=== PATIENT | male | born 1975 | race Caucasian/White ===

== ENCOUNTER 2018-05-11 16:23 | Inpatient (IN) ==
[2018-05-11] MEDS ORDERED: Morphine Sulfate Inj 2 MG/ML Vial IV.PUSH ONE (16:31)
[2018-05-11] MEDS ORDERED: Dextrose 50% in Water 50 ML Vial IV.PUSH PRN (16:31)
--- NOTE | 2018-05-11 16:36 | ED ---
HPI General Chief complaint: Chest Pain Stated complaint: Medical Time Seen by Provider: 05/11/18 16:31 Source: patient and EMS Mode of arrival: EMS Limitations: no limitations History of Present Illness HPI narrative: 43-year-old male with history of hypertension, diabetes, brought in by ambulance emergently for evaluation of chest pain, shortness of breath, hypotension. Patient started a new weekly injectable GLP-1 agonist yesterday evening and had several episodes of vomiting thereafter. He called the prescribing physician who reported that this is a known side effect of the medication. This afternoon the patient was awoken suddenly from sleep with substernal chest pain that radiates to his back. He describes the pain as sharp , constant, severe. He was given 325 mg of aspirin by EMS and sublingual nitroglycerin with subsequent episode of hypotension. He arrived on nonrebreather mask complaining of severe chest pain. He does see spray gun striper Dr. Aj because of his history of hypertension and diabetes, however he has no known cardiac disease. No fevers or recent illness. No abdominal pain. No paresthesias or motor deficits. No history of DVT or PE. No recent travel or immobilization. BGL on arrival is 295. His arrived shortly after, and reports that they both started the Keto diet one week ago. Related Data Home Medications Medication Instructions Recorded Confirmed empagliflozin [Jardiance] 10 mg PO DAILY 05/11/18 05/11/18 enalapril maleate 20 mg PO DAILY 05/11/18 05/11/18 metformin 1,000 mg PO BID 05/11/18 05/11/18 semaglutide [Ozempic] 0.25 mg SUBCUT QWEEK 05/11/18 05/11/18 sitagliptin [Januvia] 100 mg PO DAILY 05/11/18 05/11/18 Allergies Allergy/AdvReac Type Severity Reaction Status Date / Time No Known Allergies Allergy Verified 05/11/18 16:56 Review of Systems ROS: all other systems reviewed are negative PMFSH Medical History Medical History Diabetes (Acute) Hypertension (Acute) Social History Social History Substance History: No History of Abuse Second Hand Smoke Exposure: No Smoking Status: Never smoker How Often Do You Have a Drink Containing Alcohol: Never Recent Travel [facility] within the Last 8 Weeks: No Recent Out of Country Travel within the Last 8 Weeks: No Exam Narrative Exam Narrative: GENERAL: Well-developed, well-nourished, slightly tachypneic with a respiratory rate of 25 SKIN: Focused skin assessment warm/dry. HEAD: Atraumatic. Normocephalic. EYES: Pupils equal and round. No scleral icterus. No injection or drainage. ENT: Mucous membranes pink and dry. Ketotic odor on breath. NECK: Trachea midline. No JVD. CARDIOVASCULAR: Tachycardic, rate 115, regular. Distal pulses brisk and equal bilaterally. RESPIRATORY: No accessory muscle use. Clear to auscultation. Breath sounds equal bilaterally. GASTROINTESTINAL: Abdomen soft, non-tender, nondistended. MUSCULOSKELETAL: No obvious deformities. No clubbing. No cyanosis. No edema. NEUROLOGICAL: Awake and alert. No obvious cranial nerve deficits. Motor grossly within normal limits. Normal speech. PSYCHIATRIC: Appropriate mood and affect; insight and judgment normal. Course Initial Documented Vital Signs Pulse Rate 117 H 05/11/18 16:26 Respiratory Rate 25 H 05/11/18 16:26 Blood Pressure 117/82 05/11/18 16:26 Pulse Oximetry 100 05/11/18 16:26 Last Documented Vital Signs Pulse Rate 112 H 05/11/18 17:43 Respiratory Rate 22 05/11/18 17:43 Blood Pressure 135/68 05/11/18 17:43 Pulse Oximetry 100 05/11/18 17:43 Critical Care Time Critical Care Time: Yes Total Critical Care Time: 45 Attestation: Aggregate critical care time was 45 minutes. Time to perform other separately billable procedures was not included in the critical care time. My time did not include minutes spent treating any other patients simultaneously or on activities that did not directly contribute to the patient's treatment. The services I provided to this patient were to treat and/or prevent clinically significant deterioration that could result in: , permanent disability, diabetic coma I provided critical care services requiring my management, as noted below: Chart data review, documentation time, medication orders and management, vital sign assessments/reviewing monitor data, ordering and reviewing lab tests, ordering and interpreting/reviewing x-rays and diagnostic studies, care of the patient and discussion of the patient with the admitting physicians. Medical Decision Making MDM Narrative Medical decision making narrative: Venous blood gas was done soon after the patient arrived to the emergency department and shows a pH of 7.04 with bicarb of 5.7. Patient was written for 3 L of normal saline IV for suspected DKA. Awaiting chemistry to start DKA protocol. Vital signs and labs reviewed. Chest x-ray shows no acute disease. Cardiac enzymes are negative. The patient is in DKA. His beta hydroxybutyrate is 11.11 with an anion gap of 25 and a bicarb of 5. DKA protocol was initiated, and the patient will be admitted to the ICU for further treatment and evaluation. The patient and the patient significant other were made aware of all findings and plan for admission. Case discussed with [facility] hospitalist who prefers that the patient be admitted under the clinical laboratory service teacher service. Case discussed with clinical laboratory service teacher Dr. Whiting who will admit the patient to the clinical laboratory service teacher service. Medical Screen Exam Complete: Yes Emergency Medical Condition: Yes Differential Diagnosis Differential Diagnosis: DKA, metabolic abnormality, ACS, pneumothorax, pericarditis, PE, pneumonia, dissection, Boerhaave syndrome Lab Data Result diagrams: 05/11/18 16:30 05/11/18 16:30 Lab Results 05/11/18 05/11/18 05/11/18 Range/Units 16:30 16:30 16:30 WBC 16.9 H (4.0-11.0) th/mm3 RBC 5.32 (4.50-5.90) mil/mm3 Hgb 15.8 (13.0-17.0) gm/dL Hct 49.2 (39.0-51.0) % MCV 92.5 (80.0-100.0) fL MCH 29.7 (27.0-34.0) pg MCHC 32.1 (32.0-36.0) % RDW 12.9 (11.6-17.2) % Plt Count 333 (150-450) th/mm3 MPV 9.4 (7.0-11.0) fL Neut % (Auto) 82.9 H (16.0-70.0) % Lymph % (Auto) 11.1 (9.0-44.0) % Schleicher % (Auto) 5.3 (0.0-8.0) % Eos % (Auto) 0.0 (0.0-4.0) % Baso % (Auto) 0.7 (0.0-2.0) % Neut # (Auto) 14.0 H (1.8-7.7) th/mm3 Lymph # (Auto) 1.9 (1.0-4.8) th/mm3 Schleicher # (Auto) 0.9 (0.0-0.9) th/mm3 Eos # (Auto) 0.0 (0.0-0.4) th/mm3 Baso # (Auto) 0.1 (0.0-0.2) th/mm3 WBC Differential . Differential Comment Auto diff final Puncture Site Peripheral line Patient Temperature 98.6 VBG pH 7.04 L* (7.360-7.400) VBG pCO2 22 L (44-48) mmHG VBG pO2 41 H (35-40) mmHG VBG HCO3 6 L* (22-26) mmol/L VBG O2 Saturation 62 L (70-76) % VBG O2 Content 14.2 (9.0-17.0) Vol % VBG Base Excess -22.9 L (-2-2) mmol/L VBG Carboxyhemoglobin 1.2 (0-4) % VBG Methemoglobin 1.4 (0-2) % Hemoglobin 16.5 H (12.0-16.0) G/DL Inspired O2 21 % Critical Value Yes Sodium 129 L (136-145) meq/L Potassium 4.7 (3.5-5.1) meq/L Chloride 98 (98-107) meq/L Carbon Dioxide 5.6 L (21.0-32.0) meq/L Anion Gap 25 H (5-15) meq/L BUN 30 H (7-18) mg/dL Creatinine 2.02 H (0.60-1.30) mg/dL Estimated GFR 36 L (>89) mL/min POC Glucose (68-110) mg/dl Random Glucose 283 H (74-106) mg/dL Calcium 8.0 L (8.5-10.1) mg/dL Total Bilirubin 0.9 (0.2-1.0) mg/dL AST 10 L (15-37) U/L ALT 25 (12-78) U/L Alkaline Phosphatase 94 (45-117) U/L Total Creatine Kinase 45 (39-308) U/L Troponin I Less than 0.02 L (0.02-0.05) ng/mL Total Protein 8.3 H (6.4-8.2) g/dL Albumin 4.5 (3.4-5.0) g/dL Lipase 166 (73-393) U/L Beta-Hydroxybutyric Acd 11.11 H (0.00-0.39) mmol/L 05/11/18 05/11/18 Range/Units 16:31 17:45 WBC (4.0-11.0) th/mm3 RBC (4.50-5.90) mil/mm3 Hgb (13.0-17.0) gm/dL Hct (39.0-51.0) % MCV (80.0-100.0) fL MCH (27.0-34.0) pg MCHC (32.0-36.0) % RDW (11.6-17.2) % Plt Count (150-450) th/mm3 MPV (7.0-11.0) fL Neut % (Auto) (16.0-70.0) % Lymph % (Auto) (9.0-44.0) % Schleicher % (Auto) (0.0-8.0) % Eos % (Auto) (0.0-4.0) % Baso % (Auto) (0.0-2.0) % Neut # (Auto) (1.8-7.7) th/mm3 Lymph # (Auto) (1.0-4.8) th/mm3 Schleicher # (Auto) (0.0-0.9) th/mm3 Eos # (Auto) (0.0-0.4) th/mm3 Baso # (Auto) (0.0-0.2) th/mm3 WBC Differential Differential Comment Puncture Site Patient Temperature VBG pH (7.360-7.400) VBG pCO2 (44-48) mmHG VBG pO2 (35-40) mmHG VBG HCO3 (22-26) mmol/L VBG O2 Saturation (70-76) % VBG O2 Content (9.0-17.0) Vol % VBG Base Excess (-2-2) mmol/L VBG Carboxyhemoglobin (0-4) % VBG Methemoglobin (0-2) % Hemoglobin (12.0-16.0) G/DL Inspired O2 % Critical Value Sodium (136-145) meq/L Potassium (3.5-5.1) meq/L Chloride (98-107) meq/L Carbon Dioxide (21.0-32.0) meq/L Anion Gap (5-15) meq/L BUN (7-18) mg/dL Creatinine (0.60-1.30) mg/dL Estimated GFR (>89) mL/min POC Glucose 294 H 237 H (68-110) mg/dl Random Glucose (74-106) mg/dL Calcium (8.5-10.1) mg/dL Total Bilirubin (0.2-1.0) mg/dL AST (15-37) U/L ALT (12-78) U/L Alkaline Phosphatase (45-117) U/L Total Creatine Kinase (39-308) U/L Troponin I (0.02-0.05) ng/mL Total Protein (6.4-8.2) g/dL Albumin (3.4-5.0) g/dL Lipase (73-393) U/L Beta-Hydroxybutyric Acd (0.00-0.39) mmol/L Imaging Data Radiologist's impression: Chest X-Ray 05/11/18 00:00 CONCLUSION: Negative examination. ECG Data Attestation: I personally reviewed and interpreted this ECG as follows: (Sinus tachycardia, rate 117, leftward axis, normal intervals, no acute ischemic abnormality.) Discharge Plan Discharge Disposition Patient Disposition: 30 Still Patient Discharge Condition Condition: Fair Discharge Details Diagnosis: DKA (diabetic ketoacidoses) Physicians Team ED Provider: David Billingsley Primary Care Provider: UNKNOWN, Rxs /Orders / Referrals /Forms Prescriptions: No Action enalapril maleate 20 mg Tablet 20 mg PO DAILY RF: 0 metformin 1,000 mg Tablet 1,000 mg PO BID RF: 0 sitagliptin [Januvia] 100 mg Tablet 100 mg PO DAILY RF: 0 empagliflozin [Jardiance] 10 mg Tablet 10 mg PO DAILY RF: 0 semaglutide [Ozempic] 0.25 mg or 0.5 mg(2 mg/1.5 mL) Pen Injector 0.25 mg SUBCUT QWEEK RF: 0 Discharge Instructions Patient Printed Instructions: Chest Pain (ED) Status ED Status: With Doctor
[2018-05-11] MEDS ORDERED: Sod Chloride 0.9% Inj 1,000 ML IV.SIG SCH ×2 (16:45)
[2018-05-11 16:50] LABS: VBG Base Excess -22.9 mmol/L (-2-2); VBG Blood Gas Oxygen Content 14.2 Vol % (9.0-17.0); VBG PCO2 22 mmHG (44-48); VBG PH 7.04 (7.360-7.400); VBG PO2 41 mmHG (35-40)
[2018-05-11] MEDS: Sod Chloride 0.9% Inj 1,000 ML IV.SIG SCH ×2 (16:51→17:34)
--- NOTE | 2018-05-11 16:55 | XR ---
EXAM DATE: 05/11/2018 4:52 PM EST AGE/SEX: 43 years / Male INDICATIONS: Chest pain. CLINICAL DATA: This is the patient's initial encounter. Patient reports that signs and symptoms have been present for 1 day and indicates a pain score of 5/10. MEDICAL/SURGICAL HISTORY: None. None. COMPARISON: No prior exams available for comparison. FINDINGS: A single AP view of the chest demonstrates the lungs to be symmetrically aerated without evidence of mass, infiltrate or effusion. The cardiomediastinal contours are unremarkable. Osseous structures a re intact. CONCLUSION: Negative examination. Electronically signed by: Tez Mendenhall MD 05/11/2018 4:53 PM EST
[2018-05-11 17:16] LABS: Baso # (Auto) 0.1 th/mm3 (0.0-0.2); Baso % (Auto) 0.7 % (0.0-2.0); Hematocrit 49.2 % (39.0-51.0); Hemoglobin 15.8 gm/dL (13.0-17.0); Lymph # (Auto) 1.9 th/mm3 (1.0-4.8); Lymph % (Auto) 11.1 % (9.0-44.0); Mean Corpuscular HGB Conc 32.1 % (32.0-36.0); Mean Corpuscular Hemoglobin 29.7 pg (27.0-34.0); Mean Corpuscular Volume 92.5 fL (80.0-100.0); Mean Platelet Volume 9.4 fL (7.0-11.0); Mono # (Auto) 0.9 th/mm3 (0.0-0.9); Mono % (Auto) 5.3 % (0.0-8.0); Neut % (Auto) 82.9 % (16.0-70.0); Platelet Count 333 th/mm3 (150-450); Red Blood Count 5.32 mil/mm3 (4.50-5.90); Red Cell Distribution Width 12.9 % (11.6-17.2); White Blood Count 16.9 th/mm3 (4.0-11.0)
[2018-05-11 17:43] LABS: Alanine Aminotransferase 25 U/L (12-78); Albumin 4.5 g/dL (3.4-5.0); Anion Gap 25 meq/L (5-15); Aspartate Aminotransferase 10 U/L (15-37); Blood Urea Nitrogen 30 mg/dL (7-18); Carbon Dioxide 5.6 meq/L (21.0-32.0); Chloride 98 meq/L (98-107); Glomerular Filtration Rate 36 mL/min (>89); Glucose,Random 283 mg/dL (74-106); Lipase 166 U/L (73-393); Potassium 4.7 meq/L (3.5-5.1); Sodium 129 meq/L (136-145)
[2018-05-11 17:54] LABS: Alkaline Phosphatase 94 U/L (45-117); Beta Hydroxybutyric Acid 11.11 mmol/L (0.00-0.39); Total Protein 8.3 g/dL (6.4-8.2)
[2018-05-11] MEDS ORDERED: Potassium Chlor 20 mEq Premix 20 MEQ/100 ML PIGGYBACK IV.SIG PRN ×4 (17:59)
[2018-05-11] MEDS ORDERED: Potassium Chlor 40 mEq Premix 40 MEQ/100 ML PIGGYBACK IV.SIG PRN ×2 (17:59)
[2018-05-11] MEDS ORDERED: Sodium Phosphate Inj 15 MMOL in Sodium Chlor 0.9% Inj 100 ML IV.SIG PRN (17:59)
[2018-05-11 18:00] LABS: Creatine Kinase 45 U/L (39-308)
[2018-05-11 18:34] LABS: Bilirubin,Urine Negative (Negative); Clarity,Urine Clear (Clear); Color,Urine Straw (Yellw/Straw); Glucose,Urine (UA) 500 or Greater mg/dL (Negative); Hyaline Casts,Urine 10 /lpf (0-3); Leukocyte Esterase,Urine Negative (Negative); Mucus,Urine Few /lpf (Occasional); Nitrite,Urine Negative (Negative); Specific Gravity,Urine 1.014 (1.002-1.035); Squamous Epithelial Cell,Urine <1 /hpf (0-5)
[2018-05-11] MEDS: Dextrose 5%/NaCl 0.9% Inj 1,000 ML IV.CONT SCH ×2 (18:42→23:32)
[2018-05-11] MEDS: Insulin Regular (For Infusion) 100 UNIT in Sodium Chlor 0.9% Inj 99 ML IV.CONT PRN (18:43)
[2018-05-11] MEDS: Sod Chloride 0.9% Inj 1,000 ML IV.CONT SCH (18:46)
[2018-05-11] MEDS ORDERED: Acetaminophen 325 MG Tablet PO PRN (19:12)
[2018-05-11] MEDS ORDERED: Bisacodyl 10 MG Supp RECTAL PRN (19:12)
--- NOTE | 2018-05-11 19:25 | P.HPCC ---
History of Present Illness Service: Critical care medicine Primary Care Physician: UNKNOWN Chief Complaint: Abdominal pain/nausea vomiting History of Present Illness: This is a 43-year-old male. Admission 05/11/2018. Past medical includes diabetes mellitus times 3 years and hypertension. Patient presents to [facility] with acute onset of abdominal pains consistent nausea vomiting/ epigastric, chest pain shortness of breath. Patient was recently started on semagliptide 0.25 mg sq weekly this past and ultimately started having several episodes of nausea/vomiting.He notified his instructor of spanish/the prescribing physician who reported that this is a known side effect of the medication. This afternoon the patient was awoken suddenly from sleep with substernal chest pain that radiates to his back. He describes the pain as sharp , constant, severe. He was given 325 mg of aspirin by EMS and sublingual nitroglycerin with subsequent episode of hypotension. He arrived on nonrebreather mask complaining of severe chest pain. He does see big data software engineer Dr. Aj because of his history of hypertension and diabetes, however he has no known cardiac disease. Blood sugar was elevated to 95. No definite data S2 11.1. Blood gas repeated for some 0.04. Patient received a bolus of crystalloid and started on insulin drip at 4 units after receiving an 9 L bolus for insulin. Patient's nausea/ vomiting is improved after receiving ondansetron. Patient also to be acute kidney with a creatinine of 2.0. - Diagnosis (1) Leukocytosis (2) Hyponatremia (3) Acute kidney injury (4) Essential hypertension (5) DKA (diabetic ketoacidoses) (6) Ganglion cyst of dorsum of left wrist Inpatient Certification: I certify that the inpatient services were ordered in accordance with Medicare regulations governing the order. This includes certification that hospital inpatient services are reasonable and necessary and in the case of services not specified as inpatient-only under 42 CFR 419.22(n), that they are appropriately provided as inpatient services in accordance to with the 2-midnight benchmark under 43 CFR 412.3(e) Estimated Total Length of Stay (Days): 3 Plans for Post Hospital Care: Home Review of Systems Constitutional: Reports body ache(s), Denies anorexia, Denies chills, Denies daytime sleepiness Eyes: Denies blind spots, Denies blurry vision Ears, Nose, Mouth, and Throat: Denies abnormal hearing, Denies bleeding gums Cardiovascular: Reports chest pain, Denies chest pain at rest, Denies chest pain with activity, Denies shortness of breath with activity Respiratory: Denies change in phlegm color, Denies chest congestion Gastrointestinal: Reports abdominal pain, Reports nausea, Reports vomiting, Denies vomiting blood Genitourinary: Denies scrotal swelling Musculoskeletal: Denies abnormal walking, Denies joint swelling Skin/Breast: Denies bleeding lesions, Denies dry skin Neurologic: Denies abnormal hearing, Denies abnormal movements, Denies behavioral changes Psychiatric: Denies abnormal sleep pattern, Denies anxiety, Denies confusion Endocrine: Denies cold intolerance, Denies excessive sweating Hematologic/Lymphatic: Denies easy bleeding Allergic/Immunologic: Denies GI upset with certain foods PMFSH - History History Provided By: Preparation Plant Repairer / EMT - Medical History Medical History: Medical History (Last Updated 05/11/18 @ 19:18 by Balta Whiting MD) Diabetes Hypertension - Surgical History Surgical History: Surgical History (Last Updated 05/11/18 @ 19:19 by Balta Whiting MD) Ganglion cyst of dorsum of left wrist (Chronic) H/O removal of cyst S/P right rotator cuff repair - Family History Family History: Family History (Last Updated 05/11/18 @ 19:19 by Balta Whiting MD) Other Family history normal - Social History I have reviewed the patient's Social History: Yes - Tobacco History Second Hand Smoke Exposure: No Smoking Status: Never smoker - Alcohol History How Often Do You Have a Drink Containing Alcohol: Never - Substance Use History Substance History: No History of Abuse - Travel History Recent Travel in the [place] Within the Last 8 Weeks: No Recent Travel Out of the Country Within the Last 8 Weeks: No - Immunization History Tetanus Immunization: <5 Years Medications and Allergies Active Medications: Active Medications Chlorhexidine Gluconate (Chlorhexidine 2% Cloth) 3 pack TOPICAL DAILY@0400 DAVY Stop: 05/17/18 03:59 Chlorhexidine Gluconate (Chlorhexidine 2% Cloth) 3 pack TOPICAL DAILY@0400 PRN PRN Reason: Extra cloth needed Stop: 05/17/18 03:59 Dextrose (D50w Vial) 50 ml IV.PUSH UNSCH PRN PRN Reason: PER HYPOGLYCEMIA PROTOCOL Dextrose/Sodium Chloride (D5w/Normal Saline Inj) 1,000 mls @ 200 mls/hr IV.CONT .Q5H [facility] Last Admin: 05/11/18 18:42 Dose: 200 mls/hr Potassium Chloride (Kcl 20 Meq Premix Inj) 20 meq in 100 mls @ 100 mls/hr IV.SIG Q1H PRN PRN Reason: for K+ 4.5 to 5 Potassium Chloride (Kcl 20 Meq Premix Inj) 20 meq in 100 mls @ 50 mls/hr IV.SIG Q2H PRN PRN Reason: for K+ 4.5 to 5 Potassium Chloride (Kcl 20 Meq Premix Inj) 20 meq in 100 mls @ 100 mls/hr IV.SIG Q1H PRN PRN Reason: for K+ 3.5 to 4.4 Potassium Chloride (Kcl 20 Meq Premix Inj) 20 meq in 100 mls @ 50 mls/hr IV.SIG Q2H PRN PRN Reason: for K+ 3.5 to 4.4 Potassium Chloride (Kcl 20 Meq Premix Inj) 20 meq in 100 mls @ 50 mls/hr IV.SIG Q2H PRN PRN Reason: for Initial K+ ONLY < 3.5 Potassium Chloride (Kcl 40 Meq Premix Inj) 40 meq in 100 mls @ 100 mls/hr IV.SIG Q1H PRN PRN Reason: for Initial K+ ONLY < 3.5 Potassium Chloride (Kcl 20 Meq Premix Inj) 20 meq in 100 mls @ 50 mls/hr IV.SIG Q2H PRN PRN Reason: for Subsequent K+ < 3.5 Potassium Chloride (Kcl 40 Meq Premix Inj) 40 meq in 100 mls @ 50 mls/hr IV.SIG Q2H PRN PRN Reason: for Subsequent K+ < 3.5 Sodium Chloride (Ns Inj) 1,000 mls @ 250 mls/hr IV.CONT .Q4H [facility] Last Admin: 05/11/18 18:46 Dose: Not Given Sodium Phosphate 15 mmol/ (Sodium Chloride) 105 mls @ 25 mls/hr IV.SIG UNSCH PRN PRN Reason: for Phosphate Level < 1.0 Insulin Human Regular 100 unit (/ Sodium Chloride) 100 mls @ 9 mls/hr IV.CONT TITRATE PRN; Protocol PRN Reason: See protocol Last Admin: 05/11/18 18:43 Dose: 9 units/hr, 9 mls/hr Sodium Bicarbonate (Sodium Bicarbonate 8.4% Inj) 100 meq IV.PUSH UNSCH PRN PRN Reason: for pH less than 6.9 Sodium Bicarbonate (Sodium Bicarbonate 8.4% Inj) 50 meq IV.PUSH UNSCH PRN PRN Reason: for pH 6.9 to 7.0 Sodium Chloride (Ns Flush) 2 ml IV.FLUSH PRN PRN PRN Reason: FLUSH AFTER USING IV ACCESS Allergies Allergy/AdvReac Type Severity Reaction Status Date / Time No Known Allergies Allergy Verified 05/11/18 16:56 Home Medications Medication Instructions Recorded Confirmed Type empagliflozin [Jardiance] 10 mg PO DAILY 05/11/18 05/11/18 History enalapril maleate 20 mg PO DAILY 05/11/18 05/11/18 History metformin 1,000 mg PO BID 05/11/18 05/11/18 History semaglutide [Ozempic] 0.25 mg SUBCUT QWEEK 05/11/18 05/11/18 History sitagliptin [Januvia] 100 mg PO DAILY 05/11/18 05/11/18 History Results - Labs CBC & Chem 7: 05/11/18 16:30 05/11/18 16:30 Labs: Short CBC 05/11/18 Range/Units 16:30 WBC 16.9 H (4.0-11.0) th/mm3 Hgb 15.8 (13.0-17.0) gm/dL Hct 49.2 (39.0-51.0) % Plt Count 333 (150-450) th/mm3 BMP 05/11/18 16:30 Sodium 129 L Potassium 4.7 Chloride 98 Carbon Dioxide 5.6 L BUN 30 H Creatinine 2.02 H Calcium 8.0 L Cardiac Enzymes 05/11/18 Range/Units 16:30 Total Creatine Kinase 45 (39-308) U/L Troponin I Less than 0.02 L (0.02-0.05) ng/mL Liver Function 05/11/18 Range/Units 16:30 Total Bilirubin 0.9 (0.2-1.0) mg/dL AST 10 L (15-37) U/L ALT 25 (12-78) U/L Alkaline Phosphatase 94 (45-117) U/L Albumin 4.5 (3.4-5.0) g/dL Urine 05/11/18 Range/Units 18:15 Urine Color Straw (Yellw/Straw) Urine Clarity Clear (Clear) Urine pH 5.0 (5.0-8.5) Ur Specific Bunn 1.014 (1.002-1.035) Urine Protein 100 H (Neg-Trace) mg/dL Urine Glucose (UA) 500 or greater (Negative) mg/dL - Imaging Impressions Chest X-Ray 05/11/18 00:00 CONCLUSION: Negative examination. Exam Vital signs: Vital Signs 05/11/18 16:26 05/11/18 16:38 05/11/18 17:43 Pulse Rate 117 H 114 H 112 H Respiratory Rate 25 H 17 22 Blood Pressure 117/82 131/65 135/68 Pulse Oximetry 100 100 05/11/18 18:48 Pulse Rate 114 H Respiratory Rate 23 Blood Pressure 138/63 Pulse Oximetry 100 Intake & Output 05/11/18 05/11/18 05/12/18 06:59 18:59 06:59 Intake Total 3700 / 3700 Output Total 500 / 500 Balance 3200 / 3200 Weight 90.718 kg Intake: IV 3700 / 3700 NS Inj 1,000 ML @ 1000 mls/hr 3700 / 3700 IV.SIG BOLUS DAVY Rx#:[id number] Output: Urine 500 / 500 - Constitutional no acute distress - Routine HEENT Exam Head: Present: normocephalic, atraumatic Eye: Present: EOMI, PERRL, normal accommodation ENT: Present: mucous membranes dry - Routine Neck Exam Present: supple, full ROM. Absent: JVD - Routine Chest/Breast/Axilla Exam Chest wall: Absent: tenderness Breast: Absent: tenderness Axillae: Absent: lymphadenopathy - Routine Respiratory Exam Present: CTA bilaterally. Absent: accessory muscle use - Routine Cardiovascular Exam Present: S1, S2, tachycardia. Absent: murmur - Routine Abdominal Exam Present: soft, normoactive bowel sounds, tenderness. Absent: distended - Routine Extremities Exam Absent: cyanosis, clubbing, edema - Routine Skin Exam Present: intact - Routine Neurological Exam Present: alert, oriented X3, CN II-XII intact. Absent: sensory deficit, motor deficit Septic Shock Reassessment Septic shock perfusion: reassessment completed Caprini VTE Risk Assessment Caprini VTE Risk Assessment: No/Low Risk (score <= 1) Caprini Risk Assessment Model: Point Value = 1 Point Value = 2 Point Value = 3 Point Value = 5 Age 41-60 Minor surgery BMI > 25 kg/m2 Swollen legs Varicose veins or History of unexplained or recurrent spontaneous Oral contraceptives or hormone replacement Sepsis (< 1 month) Serious lung disease, including pneumonia (< 1 month) Abnormal pulmonary function Acute myocardial infarction Congestive heart failure (< 1 month) History of inflammatory bowel disease Medical patient at bed rest Age 61-74 Arthroscopic surgery Major open surgery (> 45 min) Laparoscopic surgery (> 45 min) Malignancy Confined to bed (> 72 hours) Immobilizing plaster cast Central venous access Age >= 75 History of VTE Family history of VTE Factor V Leiden Prothrombin [id number] Lupus anticoagulant Anticardiolipin antibodies Elevated serum homocysteine Heparin-induced thrombocytopenia Other congenital or acquired thrombophilia Stroke (< 1 month) Elective arthroplasty Hip, pelvis, or leg fracture Acute spinal cord injury (< 1 month) Prophylaxis Regimen: Total Risk Factor Score Risk Level Prophylaxis Regimen 0-1 Low Early ambulation 2 Moderate Order ONE of the following: *Sequential Compression Device (SCD) *Heparin 5000 units SQ BID 3-4 Higher Order ONE of the following medications: *Heparin 5000 units SQ TID *Enoxaparin/Lovenox 40 mg SQ daily (WT < 150 kg, CrCl > 30 mL/min) *Enoxaparin/Lovenox 30 mg SQ daily (WT < 150 kg, CrCl > 10-29 mL/min) *Enoxaparin/Lovenox 30 mg SQ BID (WT < 150 kg, CrCl > 30 mL/min) AND/OR *Sequential Compression Device (SCD) 5 or more Highest Order ONE of the following medications: *Heparin 5000 units SQ TID (Preferred with Epidurals) *Enoxaparin/Lovenox 40 mg SQ daily (WT < 150 kg, CrCl > 30 mL/min) *Enoxaparin/Lovenox 30 mg SQ daily (WT < 150 kg, CrCl > 10-29 mL/min) *Enoxaparin/Lovenox 30 mg SQ BID (WT < 150 kg, CrCl > 30 mL/min) AND *Sequential Compression Device (SCD) Assessment and Plan - Problem List (1) Leukocytosis Code(s): D72.829 - Elevated white blood cell count, unspecified Status: Acute (2) Hyponatremia Code(s): E87.1 - Hypo-osmolality and hyponatremia Status: Acute (3) Acute kidney injury Code(s): N17.9 - Acute kidney failure, unspecified Status: Acute (4) Essential hypertension Code(s): I10 - Essential (primary) hypertension Status: Acute (5) DKA (diabetic ketoacidoses) Code(s): E13.10 - Other specified diabetes mellitus with ketoacidosis without coma Status: Acute (6) Ganglion cyst of dorsum of left wrist Code(s): M67.432 - Ganglion, left wrist Status: Chronic - Assessment and Plan Plan: Neuro/Psych: Acetaminophen 650 mg every 6 hours as needed fever Hydrocodone/acetaminophen 5/325 1 tablet every 4 hours. Pain 1 through 5 Morphine sulfate 2 g IV every q. hours as needed pain 6 through 10 CV: Tachycardia, sinus Essential hypertension Holding enalapril 20 mg daily with initial onset of hypotension likely secondary to volume depletion Currently on D5 normal saline at 200 cc an hour. Initial troponin 0 0.02. Resp: Nasal cannula to maintain saturations greater than equal to 92% Incentive spirometry while awake As needed albuterol aerosols every 2 hours as needed GI: N.p.o. status Pantoprazole for GI prophylaxis Docusate sodium/senna 1 tablet twice daily for bowel regimen Lipase within normal limits. : Straight catheterization as needed Endo: Ketoacidosis Diabetes mellitus Beta hydroxy was 11.1. Received 9 units R insulin ED. Currently on drip at 4 units an hour. Accu-Cheks q. one hours. BMP, magnesium phosphorus every 6 hours. Hydroxybutyrate every 12 hours until cleared. Check A1c and triglycerides Renal: Acute kidney injury Likely prerenal secondary to dehydration from nausea/vomiting Monitor urine output Accurate I's and O's Serial BMPs as above Heme: Acute leukocytosis Likely leukemoid type reaction Blood cultures x2 be drawn. Monitor CBC daily. Follow trends No indication for transfusion of blood products at this time. ID: Monitor for signs and symptomatology infection MSK: PT evaluate and treat out of bed FEN: Hyponatremia Replace electrolytes as clinically indicated per ICU electrolyte protocol Access -Utilize peripheral IV. Central line if indicated Prophylaxis -GI -pantoprazole -DVT SCD/heparin subcu Level 3 admission. Transfer care to hospitalist in a.m. 05/12 (1) Leukocytosis Qualifiers: Leukocytosis type: unspecified Qualified Code(s): D72.829 - Elevated white blood cell count, unspecified (5) DKA (diabetic ketoacidoses) Qualifiers: Diabetes mellitus type: type 1 Diabetes mellitus complication detail: without coma Qualified Code(s): E10.10 - Type 1 diabetes mellitus with ketoacidosis without coma
[2018-05-11] MEDS: Heparin - SQ 10,000 UNITS/ML Vial SQ SCH (20:58)
[2018-05-11] MEDS: Senna/Docusate Sodium 8.6/50 MG Tablet PO SCH (20:58)
[2018-05-11] MEDS ORDERED: Morphine Sulfate Inj 2 MG/ML Vial IV.PUSH PRN (21:00)
[2018-05-12 00:32] LABS: Calcium 7.3 mg/dL (8.5-10.1); Carbon Dioxide 6.9 meq/L (21.0-32.0); Magnesium 2.3 mg/dL (1.5-2.5); Phosphorus 2.7 mg/dL (2.5-4.9); Potassium 4.5 meq/L (3.5-5.1)
[2018-05-12 00:51] LABS: Albumin 4.1 g/dL (3.4-5.0)
[2018-05-12 00:54] LABS: Calcium-Albumin Corrected 7.2 mg/dL (8.5-10.1)
[2018-05-12] MEDS ORDERED: Calcium Chloride Inj 1 GM in Dextrose 5% in Water Inj 100 ML IV.SIG ONE ×2 (01:30)
[2018-05-12] MEDS ORDERED: Chlorhexidine Gluconate 2% 1 Pack (2 Cloths) TOPICAL SCH (04:00)
[2018-05-12] MEDS ORDERED: Chlorhexidine Gluconate 2% 1 Pack (2 Cloths) TOPICAL PRN ×2 (04:00)
[2018-05-12 04:02] LABS: Hematocrit 45.3 % (39.0-51.0); Hemoglobin 15.3 gm/dL (13.0-17.0); Mean Corpuscular HGB Conc 33.8 % (32.0-36.0); Mean Corpuscular Hemoglobin 30.2 pg (27.0-34.0); Mean Corpuscular Volume 89.3 fL (80.0-100.0); Platelet Count 239 th/mm3 (150-450); Red Blood Count 5.07 mil/mm3 (4.50-5.90); Red Cell Distribution Width 12.8 % (11.6-17.2); White Blood Count 14.1 th/mm3 (4.0-11.0)
[2018-05-12] MEDS: Chlorhexidine Gluconate 2% 1 Pack (2 Cloths) TOPICAL SCH (04:35)
[2018-05-12] MEDS: Dextrose 5%/NaCl 0.9% Inj 1,000 ML IV.CONT SCH ×4 (04:39→21:00)
[2018-05-12 04:44] LABS: Beta Hydroxybutyric Acid 4.62 mmol/L (0.00-0.39); Calcium 8.4 mg/dL (8.5-10.1); Carbon Dioxide 7.3 meq/L (21.0-32.0); Magnesium 2.5 mg/dL (1.5-2.5); Phosphorus 2.3 mg/dL (2.5-4.9); Potassium 4.2 meq/L (3.5-5.1)
[2018-05-12] MEDS: Sod Chloride 0.9% Inj 1,000 ML IV.CONT SCH ×4 (06:56→22:44)
[2018-05-12] MEDS: Senna/Docusate Sodium 8.6/50 MG Tablet PO SCH ×3 (08:16→21:29)
[2018-05-12] MEDS: Heparin - SQ 10,000 UNITS/ML Vial SQ SCH ×2 (08:17→21:01)
[2018-05-12] MEDS: Potassium Chlor 20 mEq Premix 20 MEQ/100 ML PIGGYBACK IV.SIG PRN ×3 (08:18→17:42)
[2018-05-12] MEDS ORDERED: Pantoprazole Inj 40 MG Vial IV.PUSH SCH (09:00)
[2018-05-12] MEDS ORDERED: Promethazine 25 MG Supp RECTAL PRN (09:16)
--- NOTE | 2018-05-12 09:53 | P.PN ---
Subjective Interval history: Consulted by critical care medicine for transfer care medical management. Chart reviewed. Patient presented with DKA with a pH of 7.04 bicarb of 6 anion gap of 25. He has been started on insulin drip and aggressive IV hydration. At this time he still feels nauseous with anion gap of 18. 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 hypoglycemics for now until seen in the clinic. Physical Exam Vital signs: Vital Signs 05/11/18 16:26 05/11/18 16:38 05/11/18 17:43 Temperature Pulse Rate 117 H 114 H 112 H Respiratory Rate 25 H 17 22 Blood Pressure 117/82 131/65 135/68 Pulse Oximetry 100 100 05/11/18 18:48 05/11/18 19:22 05/11/18 20:00 Temperature 99 F Pulse Rate 114 H 121 H 121 H Respiratory Rate 23 22 20 Blood Pressure 138/63 142/68 H 140/72 Pulse Oximetry 100 100 100 05/11/18 21:00 05/11/18 21:12 05/11/18 22:00 Temperature Pulse Rate 121 H 121 H 121 H Respiratory Rate 20 24 26 H Blood Pressure 143/69 H 139/68 Pulse Oximetry 100 100 100 05/11/18 23:00 05/12/18 00:00 05/12/18 01:00 Temperature 99.1 F Pulse Rate 122 H 123 H 124 H Respiratory Rate 27 H 28 H 28 H Blood Pressure 134/64 137/65 154/69 H Pulse Oximetry 99 99 97 05/12/18 02:00 05/12/18 03:00 05/12/18 04:00 Temperature 98.4 F Pulse Rate 119 H 110 H 108 H Respiratory Rate 28 H 24 24 Blood Pressure 162/77 H 156/83 H 152/83 H Pulse Oximetry 97 98 98 05/12/18 05:00 05/12/18 06:00 05/12/18 07:00 Temperature Pulse Rate 111 H 113 H 104 H Respiratory Rate 26 H 24 22 Blood Pressure 141/74 H 160/82 H 158/79 H Pulse Oximetry 98 98 98 05/12/18 08:00 Temperature Pulse Rate Respiratory Rate Blood Pressure Pulse Oximetry 97 Intake & Output 05/11/18 05/12/18 05/12/18 18:59 06:59 18:59 Intake Total 3700 / 3700 2110 / 2109 Output Total 500 / 500 1300 / 1300 Balance 3200 / 3200 810 / 810 Weight 90.718 kg 101 kg Intake: IV 3700 / 3700 2109 / 2109 D5W/Normal Saline Inj 1,000 ML 2000 / 2000 @ 200 mls/hr IV.CONT .Q5H DAVY Rx#:[id number] Calcium Chloride Inj 1 GM In 110 / 110 D5W Inj 100 ML @ 110 mls/hr IV. SIG ONCE ONE Rx#:[id number] NS Inj 1,000 ML @ 1000 mls/hr 3700 / 3700 IV.SIG BOLUS DAVY Rx#:[id number] Oral 0 / 0 Output: Urine 500 / 500 1300 / 1300 Other: Weight On Admission 102.2 kg Narrative: GENERAL: Well-developed, well-nourished critically ill patient who appears weak SKIN: Warm and dry. CARDIOVASCULAR: Regular rate and rhythm. RESPIRATORY: No accessory muscle use. Clear to auscultation. Breath sounds equal bilaterally. GASTROINTESTINAL: Abdomen soft, non-tender, nondistended. MUSCULOSKELETAL: Extremities without clubbing, cyanosis, or edema. No obvious deformities. NEUROLOGICAL: Awake and alert. No obvious cranial nerve deficits. Motor grossly within normal limits. Five out of 5 muscle strength in the arms and legs. Normal speech. PSYCHIATRIC: Appropriate mood and affect; insight and judgment normal. Results - Labs CBC & Chem 7: 05/12/18 03:45 05/12/18 14:06 Laboratory Results - last 24 hr 05/11/18 05/11/18 05/11/18 16:30 16:30 16:30 WBC 16.9 H RBC 5.32 Hgb 15.8 Hct 49.2 MCV 92.5 MCH 29.7 MCHC 32.1 RDW 12.9 Plt Count 333 MPV 9.4 Neut % (Auto) 82.9 H Lymph % (Auto) 11.1 [place] % (Auto) 5.3 Eos % (Auto) 0.0 Baso % (Auto) 0.7 Neut # (Auto) 14.0 H Lymph # (Auto) 1.9 [place] # (Auto) 0.9 Eos # (Auto) 0.0 Baso # (Auto) 0.1 WBC Differential . Differential Comment Auto diff final Puncture Site Peripheral line Patient Temperature 98.6 VBG pH 7.04 L* VBG pCO2 22 L VBG pO2 41 H VBG HCO3 6 L* VBG O2 Saturation 62 L VBG O2 Content 14.2 VBG Base Excess -22.9 L VBG Carboxyhemoglobin 1.2 VBG Methemoglobin 1.4 Hemoglobin 16.5 H Inspired O2 21 Critical Value Yes Sodium 129 L Potassium 4.7 Chloride 98 Carbon Dioxide 5.6 L Anion Gap 25 H BUN 30 H Creatinine 2.02 H Estimated GFR 36 L POC Glucose Random Glucose 283 H Lactic Acid Calcium 8.0 L Calcium Adj for Albumin Phosphorus Magnesium Total Bilirubin 0.9 AST 10 L ALT 25 Alkaline Phosphatase 94 Total Creatine Kinase 45 Troponin I Less than 0.02 L Total Protein 8.3 H Albumin 4.5 Triglycerides Lipase 166 Beta-Hydroxybutyric Acd 11.11 H Urine Color Urine Clarity Urine pH Ur Specific Avant Urine Protein Urine Glucose (UA) Urine Ketones Urine Occult Blood Urine Nitrate Urine Bilirubin Urine Urobilinogen Ur Leukocyte Esterase Urine RBC Urine WBC Ur Squamous Epith Cells Hyaline Casts Urine Mucus Micro UA Comment Ur Microscopic Review Urine Culture Comments Nasal Screen MRSA (PCR) 05/11/18 05/11/18 05/11/18 16:31 17:45 18:15 WBC RBC Hgb Hct MCV MCH MCHC RDW Plt Count MPV Neut % (Auto) Lymph % (Auto) [place] % (Auto) Eos % (Auto) Baso % (Auto) Neut # (Auto) Lymph # (Auto) [place] # (Auto) Eos # (Auto) Baso # (Auto) WBC Differential Differential Comment Puncture Site Patient Temperature VBG pH VBG pCO2 VBG pO2 VBG HCO3 VBG O2 Saturation VBG O2 Content VBG Base Excess VBG Carboxyhemoglobin VBG Methemoglobin Hemoglobin Inspired O2 Critical Value Sodium Potassium Chloride Carbon Dioxide Anion Gap BUN Creatinine Estimated GFR POC Glucose 294 H 237 H Random Glucose Lactic Acid Calcium Calcium Adj for Albumin Phosphorus Magnesium Total Bilirubin AST ALT Alkaline Phosphatase Total Creatine Kinase Troponin I Total Protein Albumin Triglycerides Lipase Beta-Hydroxybutyric Acd Urine Color Straw Urine Clarity Clear Urine pH 5.0 Ur Specific Avant 1.014 Urine Protein 100 H Urine Glucose (UA) 500 or greater Urine Ketones 80 or greater H Urine Occult Blood Negative Urine Nitrate Negative Urine Bilirubin Negative Urine Urobilinogen Less than 2 Ur Leukocyte Esterase Negative Urine RBC Less than 1 Urine WBC Less than 1 Ur Squamous Epith Cells <1 Hyaline Casts 10 Urine Mucus Few H Micro UA Comment Culture not ind Ur Microscopic Review Not Reportable Urine Culture Comments Culture not ind Nasal Screen MRSA (PCR) 05/11/18 05/11/18 05/11/18 18:35 19:35 20:18 WBC RBC Hgb Hct MCV MCH MCHC RDW Plt Count MPV Neut % (Auto) Lymph % (Auto) [place] % (Auto) Eos % (Auto) Baso % (Auto) Neut # (Auto) Lymph # (Auto) [place] # (Auto) Eos # (Auto) Baso # (Auto) WBC Differential Differential Comment Puncture Site Patient Temperature VBG pH VBG pCO2 VBG pO2 VBG HCO3 VBG O2 Saturation VBG O2 Content VBG Base Excess VBG Carboxyhemoglobin VBG Methemoglobin Hemoglobin Inspired O2 Critical Value Sodium Potassium Chloride Carbon Dioxide Anion Gap BUN Creatinine Estimated GFR POC Glucose 207 H 178 H Random Glucose Lactic Acid Calcium Calcium Adj for Albumin Phosphorus Magnesium Total Bilirubin AST ALT Alkaline Phosphatase Total Creatine Kinase Troponin I Total Protein Albumin Triglycerides Lipase Beta-Hydroxybutyric Acd Urine Color Urine Clarity Urine pH Ur Specific Avant Urine Protein Urine Glucose (UA) Urine Ketones Urine Occult Blood Urine Nitrate Urine Bilirubin Urine Urobilinogen Ur Leukocyte Esterase Urine RBC Urine WBC Ur Squamous Epith Cells Hyaline Casts Urine Mucus Micro UA Comment Ur Microscopic Review Urine Culture Comments Nasal Screen MRSA (PCR) Not detected 05/11/18 05/11/18 05/11/18 21:04 22:08 22:38 WBC RBC Hgb Hct MCV MCH MCHC RDW Plt Count MPV Neut % (Auto) Lymph % (Auto) [place] % (Auto) Eos % (Auto) Baso % (Auto) Neut # (Auto) Lymph # (Auto) [place] # (Auto) Eos # (Auto) Baso # (Auto) WBC Differential Differential Comment Puncture Site Patient Temperature VBG pH VBG pCO2 VBG pO2 VBG HCO3 VBG O2 Saturation VBG O2 Content VBG Base Excess VBG Carboxyhemoglobin VBG Methemoglobin Hemoglobin Inspired O2 Critical Value Sodium Potassium Chloride Carbon Dioxide Anion Gap BUN Creatinine Estimated GFR POC Glucose 152 H 133 H 151 H Random Glucose Lactic Acid Calcium Calcium Adj for Albumin Phosphorus Magnesium Total Bilirubin AST ALT Alkaline Phosphatase Total Creatine Kinase Troponin I Total Protein Albumin Triglycerides Lipase Beta-Hydroxybutyric Acd Urine Color Urine Clarity Urine pH Ur Specific Avant Urine Protein Urine Glucose (UA) Urine Ketones Urine Occult Blood Urine Nitrate Urine Bilirubin Urine Urobilinogen Ur Leukocyte Esterase Urine RBC Urine WBC Ur Squamous Epith Cells Hyaline Casts Urine Mucus Micro UA Comment Ur Microscopic Review Urine Culture Comments Nasal Screen MRSA (PCR) 05/11/18 05/11/18 05/12/18 23:29 23:35 00:15 WBC RBC Hgb Hct MCV MCH MCHC RDW Plt Count MPV Neut % (Auto) Lymph % (Auto) [place] % (Auto) Eos % (Auto) Baso % (Auto) Neut # (Auto) Lymph # (Auto) [place] # (Auto) Eos # (Auto) Baso # (Auto) WBC Differential Differential Comment Puncture Site Patient Temperature VBG pH VBG pCO2 VBG pO2 VBG HCO3 VBG O2 Saturation VBG O2 Content VBG Base Excess VBG Carboxyhemoglobin VBG Methemoglobin Hemoglobin Inspired O2 Critical Value Sodium 133 L Potassium 4.5 Chloride 107 D Carbon Dioxide 6.9 L Anion Gap 19 H BUN 21 H Creatinine 1.25 Estimated GFR 63 L POC Glucose 149 H 163 H Random Glucose 169 H D Lactic Acid Calcium 7.3 L* Calcium Adj for Albumin 7.2 L* Phosphorus 2.7 Magnesium 2.3 Total Bilirubin AST ALT Alkaline Phosphatase Total Creatine Kinase Troponin I Total Protein Albumin 4.1 Triglycerides Lipase Beta-Hydroxybutyric Acd Urine Color Urine Clarity Urine pH Ur Specific Avant Urine Protein Urine Glucose (UA) Urine Ketones Urine Occult Blood Urine Nitrate Urine Bilirubin Urine Urobilinogen Ur Leukocyte Esterase Urine RBC Urine WBC Ur Squamous Epith Cells Hyaline Casts Urine Mucus Micro UA Comment Ur Microscopic Review Urine Culture Comments Nasal Screen MRSA (PCR) 05/12/18 05/12/18 05/12/18 01:08 02:08 03:02 WBC RBC Hgb Hct MCV MCH MCHC RDW Plt Count MPV Neut % (Auto) Lymph % (Auto) [place] % (Auto) Eos % (Auto) Baso % (Auto) Neut # (Auto) Lymph # (Auto) [place] # (Auto) Eos # (Auto) Baso # (Auto) WBC Differential Differential Comment Puncture Site Patient Temperature VBG pH VBG pCO2 VBG pO2 VBG HCO3 VBG O2 Saturation VBG O2 Content VBG Base Excess VBG Carboxyhemoglobin VBG Methemoglobin Hemoglobin Inspired O2 Critical Value Sodium Potassium Chloride Carbon Dioxide Anion Gap BUN Creatinine Estimated GFR POC Glucose 182 H 218 H 217 H Random Glucose Lactic Acid Calcium Calcium Adj for Albumin Phosphorus Magnesium Total Bilirubin AST ALT Alkaline Phosphatase Total Creatine Kinase Troponin I Total Protein Albumin Triglycerides Lipase Beta-Hydroxybutyric Acd Urine Color Urine Clarity Urine pH Ur Specific Avant Urine Protein Urine Glucose (UA) Urine Ketones Urine Occult Blood Urine Nitrate Urine Bilirubin Urine Urobilinogen Ur Leukocyte Esterase Urine RBC Urine WBC Ur Squamous Epith Cells Hyaline Casts Urine Mucus Micro UA Comment Ur Microscopic Review Urine Culture Comments Nasal Screen MRSA (PCR) 05/12/18 05/12/18 05/12/18 03:45 03:45 03:45 WBC 14.1 H RBC 5.07 Hgb 15.3 Hct 45.3 MCV 89.3 MCH 30.2 MCHC 33.8 RDW 12.8 Plt Count 239 MPV 9.0 Neut % (Auto) Lymph % (Auto) [place] % (Auto) Eos % (Auto) Baso % (Auto) Neut # (Auto) Lymph # (Auto) [place] # (Auto) Eos # (Auto) Baso # (Auto) WBC Differential Differential Comment Puncture Site Patient Temperature VBG pH VBG pCO2 VBG pO2 VBG HCO3 VBG O2 Saturation VBG O2 Content VBG Base Excess VBG Carboxyhemoglobin VBG Methemoglobin Hemoglobin Inspired O2 Critical Value Sodium 133 L Potassium 4.2 Chloride 107 Carbon Dioxide 7.3 L Anion Gap 19 H BUN 18 Creatinine 1.26 Estimated GFR 62 L POC Glucose Random Glucose 208 H Lactic Acid 0.8 Calcium 8.4 L D Calcium Adj for Albumin Phosphorus 2.3 L Magnesium 2.5 Total Bilirubin AST ALT Alkaline Phosphatase Total Creatine Kinase Troponin I Total Protein Albumin Triglycerides 210 H Lipase Beta-Hydroxybutyric Acd 4.62 H D Urine Color Urine Clarity Urine pH Ur Specific Avant Urine Protein Urine Glucose (UA) Urine Ketones Urine Occult Blood Urine Nitrate Urine Bilirubin Urine Urobilinogen Ur Leukocyte Esterase Urine RBC Urine WBC Ur Squamous Epith Cells Hyaline Casts Urine Mucus Micro UA Comment Ur Microscopic Review Urine Culture Comments Nasal Screen MRSA (PCR) 05/12/18 05/12/18 05/12/18 04:21 05:28 06:23 WBC RBC Hgb Hct MCV MCH MCHC RDW Plt Count MPV Neut % (Auto) Lymph % (Auto) [place] % (Auto) Eos % (Auto) Baso % (Auto) Neut # (Auto) Lymph # (Auto) [place] # (Auto) Eos # (Auto) Baso # (Auto) WBC Differential Differential Comment Puncture Site Patient Temperature VBG pH VBG pCO2 VBG pO2 VBG HCO3 VBG O2 Saturation VBG O2 Content VBG Base Excess VBG Carboxyhemoglobin VBG Methemoglobin Hemoglobin Inspired O2 Critical Value Sodium Potassium Chloride Carbon Dioxide Anion Gap BUN Creatinine Estimated GFR POC Glucose 166 H 174 H 187 H Random Glucose Lactic Acid Calcium Calcium Adj for Albumin Phosphorus Magnesium Total Bilirubin AST ALT Alkaline Phosphatase Total Creatine Kinase Troponin I Total Protein Albumin Triglycerides Lipase Beta-Hydroxybutyric Acd Urine Color Urine Clarity Urine pH Ur Specific Avant Urine Protein Urine Glucose (UA) Urine Ketones Urine Occult Blood Urine Nitrate Urine Bilirubin Urine Urobilinogen Ur Leukocyte Esterase Urine RBC Urine WBC Ur Squamous Epith Cells Hyaline Casts Urine Mucus Micro UA Comment Ur Microscopic Review Urine Culture Comments Nasal Screen MRSA (PCR) 05/12/18 05/12/18 05/12/18 07:25 08:14 08:57 WBC RBC Hgb Hct MCV MCH MCHC RDW Plt Count MPV Neut % (Auto) Lymph % (Auto) [place] % (Auto) Eos % (Auto) Baso % (Auto) Neut # (Auto) Lymph # (Auto) [place] # (Auto) Eos # (Auto) Baso # (Auto) WBC Differential Differential Comment Puncture Site Patient Temperature VBG pH VBG pCO2 VBG pO2 VBG HCO3 VBG O2 Saturation VBG O2 Content VBG Base Excess VBG Carboxyhemoglobin VBG Methemoglobin Hemoglobin Inspired O2 Critical Value Sodium Potassium Chloride Carbon Dioxide Anion Gap BUN Creatinine Estimated GFR POC Glucose 191 H 178 H 172 H Random Glucose Lactic Acid Calcium Calcium Adj for Albumin Phosphorus Magnesium Total Bilirubin AST ALT Alkaline Phosphatase Total Creatine Kinase Troponin I Total Protein Albumin Triglycerides Lipase Beta-Hydroxybutyric Acd Urine Color Urine Clarity Urine pH Ur Specific Avant Urine Protein Urine Glucose (UA) Urine Ketones Urine Occult Blood Urine Nitrate Urine Bilirubin Urine Urobilinogen Ur Leukocyte Esterase Urine RBC Urine WBC Ur Squamous Epith Cells Hyaline Casts Urine Mucus Micro UA Comment Ur Microscopic Review Urine Culture Comments Nasal Screen MRSA (PCR) - Imaging ITS Impressions Chest X-Ray 05/11/18 00:00 CONCLUSION: Negative examination. - Procedures none Assessment and Plan - Plan Neuro/Psych: Acetaminophen 650 mg every 6 hours as needed fever Hydrocodone/acetaminophen 5/325 1 tablet every 4 hours. Pain 1 through 5 Morphine sulfate 2 g IV every q. hours as needed pain 6 through 10 CV: Tachycardia, sinus Essential hypertension Holding enalapril 20 mg daily with initial onset of hypotension likely secondary to volume depletion Currently on D5 normal saline at 200 cc an hour. Initial troponin 0 0.02. Chest pain from vomiting. Negative stress test 2 weeks ago Resp: Nasal cannula to maintain saturations greater than equal to 92% Incentive spirometry while awake As needed albuterol aerosols every 2 hours as needed GI: N.p.o. status Pantoprazole for GI prophylaxis Docusate sodium/senna 1 tablet twice daily for bowel regimen Lipase within normal limits. : Straight catheterization as needed Endo: Ketoacidosis. Improving but not ready to transition to subcu heparin Diabetes mellitus Beta hydroxy was 11.1. Received 9 units R insulin ED. Currently on drip at 4 units an hour. Accu-Cheks q. one hours. BMP, magnesium phosphorus every 6 hours. Hydroxybutyrate every 12 hours until cleared. Check A1c and triglycerides Renal: Acute kidney injury Likely prerenal secondary to dehydration from nausea/vomiting Monitor urine output Accurate I's and O's Serial BMPs as above Heme: Acute leukocytosis. Improving Likely leukemoid type reaction Blood cultures x2 be drawn. Monitor CBC daily. Follow trends No indication for transfusion of blood products at this time. ID: Monitor for signs and symptomatology infection MSK: PT evaluate and treat out of bed FEN: Hyponatremia Replace electrolytes as clinically indicated per ICU electrolyte protocol Access -Utilize peripheral IV. Central line if indicated Prophylaxis -GI -pantoprazole -DVT SCD/heparin subcu Discharge Planning: Patient is critically ill requiring insulin drip and hourly fingerstick monitoring. Critical care time spent 35 minutes
[2018-05-12] MEDS ORDERED: Sodium Glycerophosphate Inj 15 MMOL in Sodium Chlor 0.9% Inj 150 ML IV.SIG ONE (11:00)
[2018-05-12 12:45] LABS: Hemoglobin A1c 12.2 % (4.3-6.0)
[2018-05-12] MEDS: Insulin Regular (For Infusion) 100 UNIT in Sodium Chlor 0.9% Inj 99 ML IV.CONT PRN (13:06)
--- NOTE | 2018-05-12 13:10 | ECG ---
Date Performed: 05/11/2018 Time Performed: 16:28:21 PTAGE: 43 years EKG: SINUS TACHYCARDIA POSSIBLE LEFT ATRIAL ENLARGEMENT ABNORMAL RHYTHM ECG INTERPRETATION BASED ON A DEFAULT AGE OF 40 YEARS NO PREVIOUS TRACING DOCTOR: Rodriguez Grider Interpretating Date/Time 05/12/2018 13:09:04
[2018-05-12 14:31] LABS: Carbon Dioxide 13.8 meq/L (21.0-32.0); Magnesium 2.5 mg/dL (1.5-2.5); Phosphorus 2.4 mg/dL (2.5-4.9); Potassium 3.7 meq/L (3.5-5.1)
[2018-05-12 19:15] LABS: Calcium 8.3 mg/dL (8.5-10.1); Carbon Dioxide 11.4 meq/L (21.0-32.0); Potassium 3.8 meq/L (3.5-5.1)
[2018-05-12 19:16] LABS: Beta Hydroxybutyric Acid 3.92 mmol/L (0.00-0.39)
[2018-05-12 23:35] LABS: Beta Hydroxybutyric Acid 2.86 mmol/L (0.00-0.39); Calcium 7.6 mg/dL (8.5-10.1); Carbon Dioxide 15.2 meq/L (21.0-32.0); Potassium 3.5 meq/L (3.5-5.1)
[2018-05-12 23:40] LABS: Magnesium 2.2 mg/dL (1.5-2.5); Phosphorus 1.6 mg/dL (2.5-4.9)
[2018-05-13] MEDS: Potassium Chlor 20 mEq Premix 20 MEQ/100 ML PIGGYBACK IV.SIG PRN ×2 (00:26→02:29)
[2018-05-13] MEDS: Dextrose 5%/NaCl 0.9% Inj 1,000 ML IV.CONT SCH ×2 (00:35→02:30)
[2018-05-13] MEDS: Sod Chloride 0.9% Inj 1,000 ML IV.CONT SCH ×6 (02:04→23:07)
[2018-05-13 04:23] LABS: Baso # (Auto) 0.1 th/mm3 (0.0-0.2); Baso % (Auto) 0.5 % (0.0-2.0); Hematocrit 39.6 % (39.0-51.0); Hemoglobin 13.5 gm/dL (13.0-17.0); Lymph # (Auto) 1.5 th/mm3 (1.0-4.8); Lymph % (Auto) 15.1 % (9.0-44.0); Mean Corpuscular HGB Conc 34.1 % (32.0-36.0); Mean Corpuscular Hemoglobin 30.2 pg (27.0-34.0); Mean Corpuscular Volume 88.5 fL (80.0-100.0); Mono # (Auto) 1.2 th/mm3 (0.0-0.9); Mono % (Auto) 12.3 % (0.0-8.0); Neut # (Auto) 7.1 th/mm3 (1.8-7.7); Neut % (Auto) 72.1 % (16.0-70.0); Platelet Count 162 th/mm3 (150-450); Red Blood Count 4.47 mil/mm3 (4.50-5.90); Red Cell Distribution Width 12.7 % (11.6-17.2); White Blood Count 9.9 th/mm3 (4.0-11.0)
[2018-05-13 04:50] LABS: Calcium 7.9 mg/dL (8.5-10.1); Carbon Dioxide 18.4 meq/L (21.0-32.0); Magnesium 2.2 mg/dL (1.5-2.5); Potassium 3.7 meq/L (3.5-5.1)
[2018-05-13 04:51] LABS: Phosphorus 1.2 mg/dL (2.5-4.9)
[2018-05-13 04:52] LABS: Beta Hydroxybutyric Acid 1.34 mmol/L (0.00-0.39)
[2018-05-13] MEDS: Chlorhexidine Gluconate 2% 1 Pack (2 Cloths) TOPICAL SCH (05:12)
[2018-05-13] MEDS ORDERED: Potassium Phosphate Inj 30 MMOL in Sodium Chlor 0.9% Inj 250 ML IV.SIG ONE (07:30)
[2018-05-13] MEDS ORDERED: Aluminum/Magnesium/Simethacone Susp 30 ML UDC PO PRN (07:31)
[2018-05-13] MEDS ORDERED: DC Insulin drip 2 hrs post basal insulin dose OTHER ONE (07:32)
[2018-05-13] MEDS ORDERED: Dextrose 50% in Water 50 ML Vial IV.PUSH PRN (07:32)
[2018-05-13] MEDS ORDERED: DC previous DKA orders (HMC 1917) OTHER ONE (07:32)
--- NOTE | 2018-05-13 07:42 | P.PN ---
Subjective Interval history: Follow-up DKA. Complaining of dyspepsia. Anion gap of 9 bicarb of 18 discussed with nurse will transition to subcu insulin start Levemir 20 units daily. Agrees with current management Physical Exam Vital signs: Vital Signs 05/12/18 08:00 05/12/18 09:00 05/12/18 10:00 Temperature 99.2 F Pulse Rate 101 H 103 H 89 Respiratory Rate 24 23 23 Blood Pressure 180/84 H 167/86 H 170/88 H Pulse Oximetry 97 98 98 05/12/18 11:00 05/12/18 12:00 05/12/18 12:12 Temperature 99.6 F Pulse Rate 95 H 98 H 98 H Respiratory Rate 22 26 H Blood Pressure 178/93 H 173/84 H Pulse Oximetry 97 98 05/12/18 13:00 05/12/18 14:00 05/12/18 15:00 Temperature Pulse Rate 99 H 103 H 96 H Respiratory Rate 21 20 21 Blood Pressure 167/83 H 179/88 H 181/93 H Pulse Oximetry 97 98 98 05/12/18 16:00 05/12/18 16:39 05/12/18 17:00 Temperature 99.4 F Pulse Rate 111 H 110 H 109 H Respiratory Rate 26 H 23 23 Blood Pressure 131/58 L 131/58 L 136/60 Pulse Oximetry 99 99 05/12/18 18:00 05/12/18 20:00 05/12/18 21:00 Temperature 99.3 F Pulse Rate 105 H 100 H 101 H Respiratory Rate 23 19 24 Blood Pressure 155/71 H 152/77 H 143/64 H Pulse Oximetry 99 99 99 05/12/18 22:00 05/12/18 23:00 05/13/18 00:00 Temperature 98.9 F Pulse Rate 100 H 102 H 83 Respiratory Rate 20 16 21 Blood Pressure 158/74 H 175/79 H 161/84 H Pulse Oximetry 98 99 98 05/13/18 01:00 05/13/18 02:00 05/13/18 03:00 Temperature Pulse Rate 94 H 84 79 Respiratory Rate 17 21 19 Blood Pressure 155/80 H 154/80 H 157/88 H Pulse Oximetry 96 97 98 05/13/18 04:00 05/13/18 05:00 05/13/18 06:00 Temperature 99.2 F 99.2 F Pulse Rate 82 86 66 Respiratory Rate 20 20 16 Blood Pressure 153/76 H 162/84 H 170/86 H Pulse Oximetry 97 97 98 Intake & Output 05/12/18 05/13/18 05/13/18 18:59 06:59 18:59 Intake Total 2400 / 2400 1999 / 1999 Output Total 2049 2400 / 2400 Balance 350 / 350 -400 / -400 Weight 104.3 kg Intake: IV 2400 / 2400 1999 / 1999 D5W/Normal Saline Inj 1,000 ML 1999 1800 / 1800 @ 200 mls/hr IV.CONT .Q5H DAVY Rx#:[id number] NovoLIN R (IV Infusion) 100 100 / 100 UNIT In NS Inj 99 ML @ 9 UNITS/ HR 9 mls/hr IV.CONT TITRATE PRN Rx#:[id number] KCl 20 mEq Premix Inj 20 meq In 300 / 300 200 / 200 100 ml @ 50 mls/hr IV.SIG Q2H PRN Rx#:[id number] Output: Urine 1650 / 1650 2400 / 2400 Emesis 400 / 400 Other: # Voids 2 5 Narrative: GENERAL: Well-developed, well-nourished patient SKIN: Warm and dry. CARDIOVASCULAR: Regular rate and rhythm. RESPIRATORY: No accessory muscle use. Clear to auscultation. Breath sounds equal bilaterally. GASTROINTESTINAL: Abdomen soft, non-tender, nondistended. MUSCULOSKELETAL: Extremities without clubbing, cyanosis, or edema. No obvious deformities. NEUROLOGICAL: Awake and alert. No obvious cranial nerve deficits. Motor grossly within normal limits. Five out of 5 muscle strength in the arms and legs. Normal speech. Results - Labs CBC & Chem 7: 05/13/18 03:50 05/13/18 03:50 Laboratory Results - last 24 hr 05/11/18 05/12/18 05/12/18 16:30 08:14 08:57 WBC RBC Hgb Hct MCV MCH MCHC RDW Plt Count MPV Neut % (Auto) Lymph % (Auto) [place] % (Auto) Eos % (Auto) Baso % (Auto) Neut # (Auto) Lymph # (Auto) [place] # (Auto) Eos # (Auto) Baso # (Auto) WBC Differential Differential Comment Sodium Potassium Chloride Carbon Dioxide Anion Gap BUN Creatinine Estimated GFR POC Glucose 178 H 172 H Random Glucose Hemoglobin A1c 12.2 H Calcium Phosphorus Magnesium Beta-Hydroxybutyric Acd 05/12/18 05/12/18 05/12/18 10:03 11:17 11:55 WBC RBC Hgb Hct MCV MCH MCHC RDW Plt Count MPV Neut % (Auto) Lymph % (Auto) [place] % (Auto) Eos % (Auto) Baso % (Auto) Neut # (Auto) Lymph # (Auto) [place] # (Auto) Eos # (Auto) Baso # (Auto) WBC Differential Differential Comment Sodium Potassium Chloride Carbon Dioxide Anion Gap BUN Creatinine Estimated GFR POC Glucose 167 H 166 H 198 H Random Glucose Hemoglobin A1c Calcium Phosphorus Magnesium Beta-Hydroxybutyric Acd 05/12/18 05/12/18 05/12/18 13:04 14:00 14:06 WBC RBC Hgb Hct MCV MCH MCHC RDW Plt Count MPV Neut % (Auto) Lymph % (Auto) [place] % (Auto) Eos % (Auto) Baso % (Auto) Neut # (Auto) Lymph # (Auto) [place] # (Auto) Eos # (Auto) Baso # (Auto) WBC Differential Differential Comment Sodium 138 Potassium 3.7 Chloride 111 H Carbon Dioxide 13.8 L Anion Gap 13 BUN 14 Creatinine 1.19 Estimated GFR 67 L POC Glucose 161 H 152 H Random Glucose 182 H Hemoglobin A1c Calcium 8.0 L Phosphorus 2.4 L Magnesium 2.5 Beta-Hydroxybutyric Acd 05/12/18 05/12/18 05/12/18 15:19 15:58 16:36 WBC RBC Hgb Hct MCV MCH MCHC RDW Plt Count MPV Neut % (Auto) Lymph % (Auto) [place] % (Auto) Eos % (Auto) Baso % (Auto) Neut # (Auto) Lymph # (Auto) [place] # (Auto) Eos # (Auto) Baso # (Auto) WBC Differential Differential Comment Sodium Potassium Chloride Carbon Dioxide Anion Gap BUN Creatinine Estimated GFR POC Glucose 145 H 160 H 183 H Random Glucose Hemoglobin A1c Calcium Phosphorus Magnesium Beta-Hydroxybutyric Acd 05/12/18 05/12/18 05/12/18 17:40 18:28 18:28 WBC RBC Hgb Hct MCV MCH MCHC RDW Plt Count MPV Neut % (Auto) Lymph % (Auto) [place] % (Auto) Eos % (Auto) Baso % (Auto) Neut # (Auto) Lymph # (Auto) [place] # (Auto) Eos # (Auto) Baso # (Auto) WBC Differential Differential Comment Sodium 138 Potassium 3.8 Chloride 114 H Carbon Dioxide 11.4 L Anion Gap 13 BUN 12 Creatinine 1.08 Estimated GFR 75 L POC Glucose 219 H 177 H Random Glucose 192 H Hemoglobin A1c Calcium 8.3 L Phosphorus Magnesium Beta-Hydroxybutyric Acd 3.92 H D 05/12/18 05/12/18 05/12/18 19:40 20:25 21:24 WBC RBC Hgb Hct MCV MCH MCHC RDW Plt Count MPV Neut % (Auto) Lymph % (Auto) [place] % (Auto) Eos % (Auto) Baso % (Auto) Neut # (Auto) Lymph # (Auto) [place] # (Auto) Eos # (Auto) Baso # (Auto) WBC Differential Differential Comment Sodium Potassium Chloride Carbon Dioxide Anion Gap BUN Creatinine Estimated GFR POC Glucose 189 H 183 H 180 H Random Glucose Hemoglobin A1c Calcium Phosphorus Magnesium Beta-Hydroxybutyric Acd 05/12/18 05/12/18 05/12/18 22:24 23:03 23:03 WBC RBC Hgb Hct MCV MCH MCHC RDW Plt Count MPV Neut % (Auto) Lymph % (Auto) [place] % (Auto) Eos % (Auto) Baso % (Auto) Neut # (Auto) Lymph # (Auto) [place] # (Auto) Eos # (Auto) Baso # (Auto) WBC Differential Differential Comment Sodium 140 Cancelled Potassium 3.5 Cancelled Chloride 113 H Cancelled Carbon Dioxide 15.2 L Cancelled Anion Gap 12 Cancelled BUN 10 Cancelled Creatinine 1.07 Cancelled Estimated GFR 75 L Cancelled POC Glucose 182 H Random Glucose 197 H Cancelled Hemoglobin A1c Calcium 7.6 L Cancelled Phosphorus 1.6 L Magnesium 2.2 Beta-Hydroxybutyric Acd 2.86 H D 05/12/18 05/13/18 05/13/18 23:27 00:24 00:26 WBC RBC Hgb Hct MCV MCH MCHC RDW Plt Count MPV Neut % (Auto) Lymph % (Auto) [place] % (Auto) Eos % (Auto) Baso % (Auto) Neut # (Auto) Lymph # (Auto) [place] # (Auto) Eos # (Auto) Baso # (Auto) WBC Differential Differential Comment Sodium Potassium Chloride Carbon Dioxide Anion Gap BUN Creatinine Estimated GFR POC Glucose 182 H 291 H 197 H Random Glucose Hemoglobin A1c Calcium Phosphorus Magnesium Beta-Hydroxybutyric Acd 12/02/18 12/02/18 12/02/18 01:24 02:23 03:27 WBC RBC Hgb Hct MCV MCH MCHC RDW Plt Count MPV Neut % (Auto) Lymph % (Auto) [place] % (Auto) Eos % (Auto) Baso % (Auto) Neut # (Auto) Lymph # (Auto) [place] # (Auto) Eos # (Auto) Baso # (Auto) WBC Differential Differential Comment Sodium Potassium Chloride Carbon Dioxide Anion Gap BUN Creatinine Estimated GFR POC Glucose 167 H 217 H 164 H Random Glucose Hemoglobin A1c Calcium Phosphorus Magnesium Beta-Hydroxybutyric Acd 05/13/18 05/13/18 05/13/18 03:50 03:50 04:26 WBC 9.9 RBC 4.47 L Hgb 13.5 Hct 39.6 MCV 88.5 MCH 30.2 MCHC 34.1 RDW 12.7 Plt Count 162 D MPV 9.0 Neut % (Auto) 72.1 H Lymph % (Auto) 15.1 [place] % (Auto) 12.3 H Eos % (Auto) 0.0 Baso % (Auto) 0.5 Neut # (Auto) 7.1 Lymph # (Auto) 1.5 [place] # (Auto) 1.2 H Eos # (Auto) 0.0 Baso # (Auto) 0.1 WBC Differential . Differential Comment Auto diff final Sodium 140 Potassium 3.7 Chloride 113 H Carbon Dioxide 18.4 L Anion Gap 9 BUN 10 Creatinine 1.11 Estimated GFR 72 L POC Glucose 159 H Random Glucose 169 H Hemoglobin A1c Calcium 7.9 L Phosphorus 1.2 L Magnesium 2.2 Beta-Hydroxybutyric Acd 1.34 H D 05/13/18 05/13/18 05/13/18 05:28 05:30 06:43 WBC RBC Hgb Hct MCV MCH MCHC RDW Plt Count MPV Neut % (Auto) Lymph % (Auto) [place] % (Auto) Eos % (Auto) Baso % (Auto) Neut # (Auto) Lymph # (Auto) [place] # (Auto) Eos # (Auto) Baso # (Auto) WBC Differential Differential Comment Sodium Potassium Chloride Carbon Dioxide Anion Gap BUN Creatinine Estimated GFR POC Glucose 217 H 161 H 170 H Random Glucose Hemoglobin A1c Calcium Phosphorus Magnesium Beta-Hydroxybutyric Acd Microbiology 05/11/18 19:55 Blood - Peripheral Aerobic Blood Culture - Preliminary No growth in 1 day 05/11/18 19:55 Blood - Peripheral Anaerobic Blood Culture - Preliminary No growth in 1 day 05/11/18 19:50 Blood - Peripheral Aerobic Blood Culture - Preliminary No growth in 1 day 05/11/18 19:50 Blood - Peripheral Anaerobic Blood Culture - Preliminary No growth in 1 day - Procedures none Assessment and Plan - Plan Neuro/Psych: Acetaminophen 650 mg every 6 hours as needed fever Hydrocodone/acetaminophen 5/325 1 tablet every 4 hours. Pain 1 through 5 Morphine sulfate 2 g IV every q. hours as needed pain 6 through 10 CV: Tachycardia, sinus. Improved Essential hypertension. Uncontrolled Restart enalapril Discontinue IV hydration initial troponin 0 0.02. Chest pain from vomiting. Negative stress test 2 weeks ago Resp: Nasal cannula to maintain saturations greater than equal to 92% Incentive spirometry while awake As needed albuterol aerosols every 2 hours as needed GI: Diabetic diet. Antireflux mechanisms discussed with patient start Tums and Maalox Pantoprazole for GI prophylaxis Docusate sodium/senna 1 tablet twice daily for bowel regimen Lipase within normal limits. : Straight catheterization as needed Endo: Ketoacidosis. Resolved Diabetes mellitus Discussed with patient's investment broker start long-acting insulin and hold oral hypoglycemics. Pt wanting to hold off insulin 2/2 work restrictions. Explained that insulin needed to be instituted to control hyperglycemia A1c 12. Will see in the clinic day after dc Accu-Cheks QID Renal: Acute kidney injury. Resolved Likely prerenal secondary to dehydration from nausea/vomiting Monitor urine output Accurate I's and O's Heme: Acute leukocytosis. Improving Likely leukemoid type reaction Blood cultures x2 be drawn. Monitor CBC daily. Follow trends No indication for transfusion of blood products at this time. ID: Monitor for signs and symptomatology infection MSK: PT evaluate and treat out of bed FEN: Hyponatremia Hypophosphatemia Replace electrolytes as clinically indicated per ICU electrolyte protocol Access -Utilize peripheral IV. Central line if indicated Prophylaxis -GI -pantoprazole -DVT SCD/heparin subcu Discharge Planning: Will transfer to floor later today if he remains stable and possibly discharge in the morning
[2018-05-13] MEDS: Heparin - SQ 10,000 UNITS/ML Vial SQ SCH ×2 (08:03→21:08)
[2018-05-13] MEDS: Senna/Docusate Sodium 8.6/50 MG Tablet PO SCH ×2 (08:04→21:07)
[2018-05-13] MEDS: Potassium Phosphate 500 MG Soluble Tablet PO SCH ×2 (08:19→21:07)
[2018-05-13] MEDS: Insulin Detemir Inj 1,000 UNIT/10 ML Vial SQ SCH (08:19)
[2018-05-13] MEDS: Insulin NovoLOG Aspart Correctional Sugar Inj SQ SCH ×4 (08:20→21:08)
[2018-05-13 22:44] VITALS: RESP 18
[2018-05-14 01:56] VITALS: O2SAT 98
[2018-05-14] MEDS: Sod Chloride 0.9% Inj 1,000 ML IV.CONT SCH ×3 (06:33→11:00)
[2018-05-14] MEDS: Chlorhexidine Gluconate 2% 1 Pack (2 Cloths) TOPICAL SCH (06:33)
[2018-05-14 06:59] LABS: Anion Gap 11 meq/L (5-15); Blood Urea Nitrogen 11 mg/dL (7-18); Calcium 8.1 mg/dL (8.5-10.1); Carbon Dioxide 19.8 meq/L (21.0-32.0); Chloride 107 meq/L (98-107); Glomerular Filtration Rate Greater Than 89 mL/min (>89); Glucose,Random 137 mg/dL (74-106); Magnesium 2.3 mg/dL (1.5-2.5); Potassium 3.3 meq/L (3.5-5.1); Sodium 138 meq/L (136-145)
[2018-05-14 07:05] LABS: Phosphorus 2.6 mg/dL (2.5-4.9)
--- NOTE | 2018-05-14 08:12 | P.DS ---
Date of admission: 05/11/18 18:34 Primary care physician: UNKNOWN Brief History from admission: This is a 43-year-old male. Admission 05/11/2018. Past medical includes diabetes mellitus times 3 years and hypertension. Patient presents to [facility] with acute onset of abdominal pains consistent nausea vomiting/ epigastric, chest pain shortness of breath. Patient was recently started on semagliptide 0.25 mg sq weekly this past and ultimately started having several episodes of nausea/vomiting.He notified his ski guide/the prescribing physician who reported that this is a known side effect of the medication. This afternoon the patient was awoken suddenly from sleep with substernal chest pain that radiates to his back. He describes the pain as sharp , constant, severe. He was given 325 mg of aspirin by EMS and sublingual nitroglycerin with subsequent episode of hypotension. He arrived on nonrebreather mask complaining of severe chest pain. He does see environmental compliance engineer Dr. Aj because of his history of hypertension and diabetes, however he has no known cardiac disease. Blood sugar was elevated to 95. No definite data S2 11.1. Blood gas repeated for some 0.04. Patient received a bolus of crystalloid and started on insulin drip at 4 units after receiving an 9 L bolus for insulin. Patient's nausea/ vomiting is improved after receiving ondansetron. Patient also to be acute kidney with a creatinine of 2.0. DS: Medications - Discharge Medications Prescriptions: insulin detemir U-100 [Levemir U-100 Insulin] 20 unit SUBCUT DAILY #6 ml pantoprazole 40 mg PO DAILY #30 tab DS: Summary Hospital Course: Neuro/Psych: Acetaminophen 650 mg every 6 hours as needed fever Hydrocodone/acetaminophen 5/325 1 tablet every 4 hours. Pain 1 through 5 Morphine sulfate 2 g IV every q. hours as needed pain 6 through 10 CV: Tachycardia, sinus. Improved Essential hypertension. Uncontrolled Restart enalapril Discontinue IV hydration initial troponin 0 0.02. Chest pain from vomiting. Negative stress test 2 weeks ago Resp: Nasal cannula to maintain saturations greater than equal to 92% Incentive spirometry while awake As needed albuterol aerosols every 2 hours as needed GI: Diabetic diet. Antireflux mechanisms discussed with patient start Tums and Maalox Pantoprazole for GI prophylaxis Docusate sodium/senna 1 tablet twice daily for bowel regimen Lipase within normal limits. : Straight catheterization as needed Endo: Ketoacidosis. Resolved Diabetes mellitus. Hyperglycemia controlled on Levemir 20 units SQ daily Discussed with patient's ski guide start long-acting insulin and hold oral hypoglycemics. Pt wanting to hold off insulin 2/2 work restrictions. Explained that insulin needed to be instituted to control hyperglycemia A1c 12. Will see in the clinic day after dc Accu-Cheks QID Renal: Acute kidney injury. Resolved Likely prerenal secondary to dehydration from nausea/vomiting Monitor urine output Accurate I's and O's Heme: Acute leukocytosis. Improving Likely leukemoid type reaction Blood cultures x2 be drawn. Monitor CBC daily. Follow trends No indication for transfusion of blood products at this time. ID: Monitor for signs and symptomatology infection MSK: PT evaluate and treat out of bed FEN: Hyponatremia Hypophosphatemia Replace electrolytes as clinically indicated per ICU electrolyte protocol Access -Utilize peripheral IV. Central line if indicated Prophylaxis -GI -pantoprazole -DVT SCD/heparin subcu - Time Spent with Patient Total time spent providing and/or coordinating discharge services: Greater than 30 minutes - Quality: VTE Deep Vein Thrombosis/Pulmonary Embolism Present on Admission: No Exam Vital signs: Vital Signs 05/13/18 09:00 05/13/18 10:00 05/13/18 11:08 Temperature Pulse Rate 73 78 78 Respiratory Rate 21 21 Blood Pressure 146/89 H 157/92 H Pulse Oximetry 96 98 05/13/18 12:00 05/13/18 16:00 05/13/18 20:00 Temperature 98.8 F 98.9 F 99.2 F Pulse Rate 84 72 90 Respiratory Rate 20 16 18 Blood Pressure 156/84 H 176/89 H 160/88 H Pulse Oximetry 98 99 97 05/14/18 00:00 Temperature 100.0 F H Pulse Rate 94 H Respiratory Rate 18 Blood Pressure 153/78 H Pulse Oximetry 98 Intake & Output 05/13/18 05/14/18 05/14/18 18:59 06:59 18:59 Intake Total 510 / 510 Output Total 550 / 550 Balance -40 / -40 Weight 98 kg Intake: IV 30 / 30 NovoLIN R (IV Infusion) 100 30 / 30 UNIT In NS Inj 99 ML @ 9 UNITS/ HR 9 mls/hr IV.CONT TITRATE PRN Rx#:[id number] Oral 480 / 480 Output: Urine 550 / 550 Other: # Voids 2 2 Date of Last Bowel Movement 05/10/18 Narrative: GENERAL: Well-developed, well-nourished patient SKIN: Warm and dry. CARDIOVASCULAR: Regular rate and rhythm. RESPIRATORY: No accessory muscle use. Clear to auscultation. Breath sounds equal bilaterally. GASTROINTESTINAL: Abdomen soft, non-tender, nondistended. MUSCULOSKELETAL: Extremities without clubbing, cyanosis, or edema. No obvious deformities. NEUROLOGICAL: Awake and alert. No obvious cranial nerve deficits. Motor grossly within normal limits. Five out of 5 muscle strength in the arms and legs. Normal speech. Results Procedures completed during hospitalization: none Labs on day of discharge: Labs from last 24 hours 05/14/18 05/13/18 05/13/18 05:26 21:03 16:47 Sodium 138 Potassium 3.3 L Chloride 107 Carbon Dioxide 19.8 L Anion Gap 11 BUN 11 Creatinine 0.81 Estimated GFR Greater than 89 POC Glucose 135 H 136 H Random Glucose 137 H Calcium 8.1 L Phosphorus 2.6 D Magnesium 2.3 05/13/18 05/13/18 05/13/18 12:22 09:36 08:23 Sodium Potassium Chloride Carbon Dioxide Anion Gap BUN Creatinine Estimated GFR POC Glucose 135 H 142 H 157 H Random Glucose Calcium Phosphorus Magnesium Preliminary micro results at discharge 05/11/18 19:55 Aerobic Blood Culture - Preliminary Blood - Peripheral No growth in 2 days Anaerobic Blood Culture - Preliminary No growth in 2 days 05/11/18 19:50 Aerobic Blood Culture - Preliminary Blood - Peripheral No growth in 2 days Anaerobic Blood Culture - Preliminary No growth in 2 days - Impressions ITS Impressions Chest X-Ray 05/11/18 00:00 CONCLUSION: Negative examination. Discharge Plan - Discharge Disposition Patient Disposition: 01 Discharge Home - Discharge Condition Condition: Fair - Discharge Order Discharge Orders: Discharge Order (Routine); Ordered 05/14/18 Ordered By: Dutch Gutierrez - Discharge Details Discharge Comment: dc after I see pt - Physicians Team Primary Care Provider: UNKNOWN, Attending Provider: Dutch Gutierrez
[2018-05-14] MEDS: Senna/Docusate Sodium 8.6/50 MG Tablet PO SCH (09:00)
[2018-05-14] MEDS: Potassium Phosphate 500 MG Soluble Tablet PO SCH (09:00)
[2018-05-14] MEDS: Heparin - SQ 10,000 UNITS/ML Vial SQ SCH (09:58)
[2018-05-14 10:07] VITALS: BP 151/86; PULSE 84; TEMP 98.7
[2018-05-14] MEDS: Insulin NovoLOG Aspart Correctional Sugar Inj SQ SCH (10:57)
[2018-05-14] MEDS: Insulin Detemir Inj 1,000 UNIT/10 ML Vial SQ SCH (10:58)
== END 2018-05-14 11:42 | disposition home or self-care (01) ==
LOC: NEPE 16:23 → NEDA 18:34 → HIMC 20:05 → N07 05-13 14:00
PROVIDERS: ADMIT Internal Medicine; ATTEND Internal Medicine